=== PATIENT | male | born 1985 | race Caucasian/White ===

== ENCOUNTER 2018-08-31 09:28 | Emergency (ER) | payer OTHER ==
[~2018-08-31] VITALS: Ht 180.3 cm; Wt 77.1 kg
--- NOTE | 2018-08-31 09:42 | PHYS DOC ---
Adult General Chief Complaint Chief Complaint: THUMB HPI HPI 33-year-old male presents to ER for complaints of nail through his left thumbnail area patient was using a nail gun when the injury occurred. On arrival patient has nail through his left nail bed with 2x4 board attached to nail on palm surface of left hand. Patient is uncertain of last tetanus update. Patient is right hand dominant. Patient denies any other injuries. Review of Systems Review of Systems Constitutional: Denies fatigue GI: Denies nausea, vomiting Musculoskeletal: Reports lt thumb pain w/nail thru nail bed Integument: Denies swelling Neurologic: Denies numbness/tingling All other systems were reviewed and found to be within normal limits, except as documented in this note. Current Medications Current Medications Current Medications Medications (Trade) Dose Ordered Sig/Nina Start Time Stop Time Status Last Admin Dose Admin Acetaminophen/ Hydrocodone Bitart (Lortab 5/325) 1 tab 1X ONCE 08/31/18 11:00 08/31/18 11:01 DC 08/31/18 11:05 1 TAB Diphtheria/ Tetanus/Acell Pertussis (Boostrix) 0.5 ml ONCE ONCE 08/31/18 09:45 08/31/18 09:46 DC 08/31/18 10:47 0.5 ML Lidocaine HCl (Xylocaine 1% Pf 30ml Vial) 30 ml 1X ONCE 08/31/18 09:45 08/31/18 09:46 DC 08/31/18 10:07 30 ML Lidocaine HCl (Xylocaine-Mpf 1% 2ml Vial) 2 ml STK-MED ONCE 08/31/18 10:01 08/31/18 10:03 DC Allergies Allergies Allergies Coded Allergies Type Severity Reaction Last Updated Verified No Known Drug Allergies 08/31/18 No Physical Exam Physical Exam Constitutional: Well developed, well nourished, no acute distress, non-toxic appearance. [] Neck: Normal range of motion, supple Cardiovascular: Heart rate regular Lungs & Thorax: Resp. equal/nonlabored Skin: Warm, dry, no ecchymosis Extremities: Neurologic: Alert and oriented X 3, normal motor function, normal sensory function, no focal deficits noted. [] Psychologic: Affect normal, judgement normal, mood normal. [] Current Patient Data Vital Signs Vital Signs Date Time Temp Pulse Resp B/P (MAP) Pulse Ox O2 Delivery O2 Flow Rate FiO2 08/31/18 11:05 16 97 Room Air 08/31/18 10:58 81 148/72 (97) 08/31/18 09:31 97.5 97.5 EKG EKG [] Radiology/Procedures Radiology/Procedures PROCEDURE: FINGER(S) LEFT EXAM: Left thumb, 2 views HISTORY: Nail gun accident. COMPARISON: None. FINDINGS: 2 views of the left thumb are obtained. There is a metallic nail traversing the radial aspect of the tuft of the first distal phalanx. No fracture is seen. There are triangular foreign bodies adjacent to the tuft of the fifth distal phalanx, possibly along the nailbed. There are few additional tiny foreign bodies along the skin surface of the fingers and hand. IMPRESSION: Metallic nail traversing the radial aspect of the tuft of the first distal phalanx. No fracture is seen. Electronically signed by: Paloma De La Cruz MD (08/31/2018 10:38 AM) [facility] DICTATED and SIGNED BY: PALOMA DE LA CRUZ MD DATE: 08/31/18 103 FB removal Repair by me: [id number] Anesthesia: 1% lidocaine used for lt thumb digital block Location: Dorsal approach digital block of lt thumb medial/lateral injection at proximal joint Tendon/Joint/Nerves: No injury- flexor tendon intact against resistance left thumb Foreign body: Nail through left thumb nail bed Complexity: No subcutaneous sutures/mucosal repair/edge excision Patient's bleeding was easily controlled in the department and there is no indication of anemia. No evidence of compartment syndrome, neurologic injury, vascular injury, open joint, tendon laceration- foreign body successfully removed Patient is appropriate for outpatient follow up. 48 hour wound check. Scar minimization instructions given. Course & Med Decision Making Course & Med Decision Making Pertinent Imaging studies reviewed. (See chart for details) Patient was evaluated in the ER for nail through his left thumb. Imaging with no obvious displaced fractures. Patient had digital block of left thumb and going anesthesia at distal tip of left thumb as patient continued to have discomfort with any movement of the nail and the nail bed. Following distal left thumb anesthesia patient was able to tolerate having 2 x 4 split at the site of the nail which allowed the nail to be significant with wire cutters. Edges of nail were cleaned and nail was soaked in iodine for 10-15 minutes. With patient tolerating movement of the nail- the nail was successfully removed from left nailbed. Patient had small amount of active bleeding following this and wound was thoroughly cleansed and irrigated again with iodine/NS cleansing. Patient remained neuro and vascular intact in left upper extremity. Patient initially had not wanted pain medication following removal of nail was accepting of one dose of [place] while in the ER preferred no prescriptions for home. Patient was updated on tetanus while in the ER. Patient will be placed on Keflex prophylactic for nail bed injury. Patient to follow-up with primary care physician or work comp for reevaluation of wound and with concerns. Home wound care was discussed with patient and significant other at bedside. Patient will be placed in aluminum splint for thumb support and protection of nail bed while healing. Education provided on signs and symptoms to return to ER for an discharge instructions were discussed. Patient comfortable with home discharge plan. Staff Physician Addendum: I was working in the ER during the course of this patient's visit. I was available for consultation as needed, but I was not directly involved in the care of this patient. Dragon Disclaimer Dragon Disclaimer This electronic medical record was generated, in whole or in part, using a voice recognition dictation system. Departure Departure Impression: Primary Impression: Puncture wound Additional Impression: Injury of finger by nail gun Disposition: 01 HOME, SELF-CARE Condition: STABLE Patient Instructions: Fingertip Injuries and Amputations, Puncture Wound Additional Instructions: Monitor wound for signs of infection. You were updated on her tetanus shot while in the emergency department. Keep wound covered while working and where aluminum splint to provide protection to the nailbed. Take the splint off multiple times daily to monitor skin condition. Tylenol and/or ibuprofen as needed for pain as directed on container. Scripts Cephalexin (KEFLEX) 500 Mg Capsule 1 CAP PO BID, #14 CAP 0 Refills Prov: JUAN CARLOS BREWER APRN 08/31/18 Problem Qualifiers JUAN CARLOS BREWER APRN Aug 31, 2018 09:42 DENNY ANDRADE MD Sep 06, 2018 08:26
[2018-08-31] MEDS ORDERED: LIDOCAINE 1% PF 30 ML VIAL. INJ ONE (09:45)
[2018-08-31] MEDS ORDERED: DIPHTH,PERTUSS(ACELL),TET TOX 0.5 ML DISP.SYRIN. VAX IM ONE (09:45)
[2018-08-31] MEDS ORDERED: LIDOCAINE 1% PF 2 ML VIAL. ONE ×2 (09:59→10:01)
--- NOTE | 2018-08-31 10:42 | RAD ---
EXAM: Left thumb, 2 views HISTORY: Nail gun accident. COMPARISON: None. FINDINGS: 2 views of the left thumb are obtained. There is a metallic nail traversing the radial aspect of the tuft of the first distal phalanx. No fracture is seen. There are triangular foreign bodies adjacent to the tuft of the fifth distal phalanx, possibly along the nailbed. There are few additional tiny foreign bodies along the skin surface of the fingers and hand. IMPRESSION: Metallic nail traversing the radial aspect of the tuft of the first distal phalanx. No fracture is seen. Electronically signed by: Paloma De La Cruz MD (08/31/2018 10:38 AM) [id number]
[2018-08-31] MEDS ORDERED: CEPH-264 PO (10:50)
[2018-08-31 10:58] VITALS: BP 148/72
[2018-08-31] MEDS ORDERED: HYDROcodone/APAP 5/325MG 1 TAB TABLET PO ONE (11:00)
== END 2018-08-31 11:05 | disposition home or self-care (01) ==
LOC: ER 09:28
DX: S61.132A Puncture wound without foreign body of left thumb with damage to nail, initial encounter (principal); W29.4XXA Contact with nail gun, initial encounter; Y93.89 Activity, other specified; Y92.89 Other specified places as the place of occurrence of the external cause; Y99.8 Other external cause status
CPT/HCPCS: 11760; 73140; 90471; 90715; 99284-25